=== PATIENT | female | born 1995 ===

== ENCOUNTER 2016-09-17 11:10 | Day surgery (SDC) | payer BC ==
--- NOTE | 2016-09-17 00:41 | HP ---
HISTORY AND PHYSICAL: DATE OF ADMISSION: 09/17/16 HISTORY OF PRESENT ILLNESS: Kaleigh is a 21-year-old right-hand dominant female who went on a hike on 09/14/16 at the [facility], when she slipped on a rock and landed on her elbow. She initially thought she had just sprained it or bruised it and she noticed overnight it was bothering her significantly. The pain is 8/10, she went to Urgent Care on September 15 and had x-rays that demonstrated an olecranon fracture with intraarticular involvement. She was placed in a well-padded splint and then brought to my clinic. She denies any numbness or tingling. She has a fair amount of pain, although she is comfortable in the splint. PAST MEDICAL HISTORY: Negative. PAST SURGICAL HISTORY: Significant for adenoid removed, PE tubes, tonsils removed, pinning of the right finger in 2011, right knee irrigation and debridement of her bursa, removed in September 2014. MEDICATIONS: Include, 1. control pills. 2. She was prescribed hydrocodone. ALLERGIES: CLINDAMYCIN. FAMILY HISTORY: Significant for diabetes in her paternal grandmother and heart disease in her paternal and maternal grandparents. High blood pressure in both sets of grandparents. SOCIAL HISTORY: She lives in a dorm. 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 She denies tobacco, denies alcohol. She exercises regularly doing aerobic exercise. She is right-hand dominant. REVIEW OF SYSTEMS: A 14-point review of systems reviewed with the patient is significant for previous fracture of her finger and the above complaint. Otherwise, remainder of systems is negative. PHYSICAL EXAMINATION GENERAL: She is in no acute distress. She is well developed, well nourished. She is alert and oriented x3. She has pleasant mood, normal affect. HEENT: EOMI. LUNGS: Chest is clear to auscultation. HEART: Regular rate and rhythm. ABDOMEN: Soft and nontender. EXTREMITIES: Examination of the right arm demonstrates she is nontender about the shoulder or the fingers. She has a well-padded splint on, which was not removed. She is able to flex and extend her thumb and other digits. She has sensate to light touch about the first dorsal webspace, index, long finger, ulnar versus small finger. She has brisk cap refill. DIAGNOSTIC STUDIES/LAB DATA: X-rays obtained at [facility] demonstrate a simple intraarticular mildly oblique fracture involving intraarticular joint space of the olecranon. No other fractures were noted. ASSESSMENT AND PLAN: She has an olecranon fracture, this needs to be fixed. We will plan for open reduction internal fixation tomorrow, 09/17/16. We discussed the risks and benefits of the surgery versus nonoperative treatment. Risks include bleed, infection, damage to nerves, vessels, surrounding structures, symptomatic hardware, stiffness, persistent pain, need for further surgery, risks of anesthesia, risk of DVT, scarring, risk of arthritis. She has elected to proceed. We will add her on to the schedule tomorrow. I will see her back in the office in approximately 10 days. At that point, we will start working on range of motion. [id number]/[facility] #: [id number] CYRIL
[~2016-09-17 11:10] MED LIST: Buffered Lidocaine 0.9% SYRIN* 5 ML/SYR SYRINGE INTRADERM ONE; Buffered Lidocaine 0.9% SYRIN* 5 ML/SYR SYRINGE ONE; Famotidine IV* 10 MG/ML 2 ML (20 mg) IV ONE; Famotidine IV* 10 MG/ML 2 ML (20 mg) ONE; Morphine INJ* 2 MG/ML 1 ML SYRINGE IV PRN; PROCHLORPERAZINE INJ 5 MG/ML 2 ML VIAL IV PRN; ceFAZolin 2 GM PREMIX(*) 2 GM/50 ML BAG IVPB ONE; fentaNYL* 50 MCG/ML 2 ML VIAL (100 MCG VIAL) IV PRN; oxyCODONE/Acetamin 5/325 MG* TAB PO PRN
[2016-09-17 11:25] LABS: UR Preg Internal Control QC Line Present
[2016-09-17] MEDS ORDERED: fentaNYL* 50 MCG/ML 2 ML VIAL (100 MCG VIAL) ONE (12:30)
[2016-09-17] MEDS ORDERED: KETAMINE HCL* 50 MG/ML 10 ML VIAL ONE (12:30)
[2016-09-17] MEDS ORDERED: Midazolam* 1 MG/ML 5 ML VIAL (5 MG) ONE (12:30)
[2016-09-17] MEDS ORDERED: Propofol* 10 MG/ML 20 ML BTL IV PUSH ONE (14:35)
[2016-09-17] MEDS ORDERED: EPHEDrine (Pressors)* 50 MG/ML VIAL ONE (14:35)
[2016-09-17] MEDS ORDERED: Dexamethasone IV* 4 MG/ML 1 ML (4 MG) ONE (14:35)
[2016-09-17] MEDS ORDERED: Lidocaine 2% PF * 5 ML VIAL ONE (14:35)
[2016-09-17] MEDS ORDERED: PROCHLORPERAZINE INJ 5 MG/ML 2 ML VIAL ONE (14:35)
[2016-09-17] MEDS ORDERED: Ondansetron INJ* 2 MG/ML VIAL ONE (14:35)
[2016-09-17] MEDS ORDERED: Ketorolac INJ* 30 MG/ML 1 ML VIAL ONE (17:09)
[2016-09-17 18:05] VITALS: BP 107/74
--- NOTE | 2016-09-17 20:45 | RAD ---
INDICATION: Right elbow ORIF COMPARISON: None FINDINGS: 2 minutes and 11 seconds of fluoroscopy were provided for the orthopedics department. Fluoroscopic spot imaging of the right elbow were obtained for operative control. CPT II Codes: 6045F (fluoro time doc)
--- NOTE | 2016-09-19 10:38 | OP ---
OPERATIVE REPORT: DATE OF OPERATION: 09/17/16 DATE OF : 89 SURGEON: Prabhu Georges MD TENDERIZER TENDER: CLAUDIA Coker An social research assistant was needed for the entirety of the case to help with positioning, retraction, and utilized throughout all portions of this case. ANESTHESIOLOGIST: Dr. Dewey. ANESTHESIA: General, interscalene block. PRE-OP DIAGNOSIS: Right displaced olecranon fracture. POST-OP DIAGNOSIS: Right displaced olecranon fracture. OPERATIVE PROCEDURE: Open reduction internal fixation of right olecranon. COMPLICATIONS: None. ESTIMATED BLOOD LOSS: Minimal. TOURNIQUET TIME: 90 min at 250 mmHg. IMPLANTS: Two 2.0 K wires and 18-gauge tension band wire construct. DISPOSITION: Stable. INDICATIONS: Kaleigh Raymond is a 21-ear-old right hand dominant female who was hiking 3 days prior in [place], when she slipped on a wet stone and landed hard on her right elbow. She initially thought she sprained. She went to urgent care the next day when she was having more pain and could not extend the arm and was diagnosed with simple slightly oblique olecranon fracture with intra- articular involvement. Risks and benefits of surgical versus nonoperative treatment were discussed at length and included, but are not limited to bleeding, infection, damage to nerves, vessels, surrounding structures, wound nonhealing, persistent pain, symptomatic hardware, need for further surgery, stiffness, arthritis, risk of anesthesia, risk of damage to nerves, vessels and surrounding structures including the AIN, TIN, and ulnar nerve, risks of DVT. She has elected to proceed. DESCRIPTION OF PROCEDURE: The patient was greeted in the preoperative area by the attending surgeon. Correct extremity was marked and consent was confirmed. She underwent interscalene nerve block by the anesthesiologist, after which she was brought back to the operating suite and placed in the lateral position and secured with vidal bag. The patient then underwent general anesthesia with LMA intubation after which an unsterile tourniquet was placed high on the right arm. The splint was removed. The skin was intact. There was mild amount of bruising, but there is no open wounds. The right arm was then prepped and draped in the usual sterile fashion beginning with chlorhexidine soap, scrub, and alcohol wipe and a final prep with ChloraPrep. After appropriate surgical pause, indicating side, site, procedure, administration of antibiotics, Esmarch was used to exsanguinate the limb and the tourniquet inflated to 250 mmHg. The midline incision was done over the ulna with care to try to sweep ulnarly to avoid the tip of the olecranon and then proximally to the triceps was then made sharply using a 15 blade. The soft tissues were carefully dissected. The bone was readily available. There was fascia that was still covering the fracture. This was then released for later closure. Using 15 blade, the fracture was readily evident. The wooden- handle elevator was used to release the fascia off the bone distally to about 4 cm distal to the fracture and then proximally to expose the triceps insertion and the projected pin placement. Once this was done, the fracture part was booked opened and then curetted using small curette and the hematoma was removed. Reduction was then done using reduction clamp. At this point, a 2.0 K -wire was then placed in the center of the ulna to try to mimic the supposed trajectory for the 2 pins. This was found to be appropriately placed. Then the parallel guide was used to place the medial and lateral pins to that. This was also checked under fluoroscopic examination. Once these were placed with good reduction, the attempt was for the tension band construct. The 18-gauge looped wire was then brought to the field. A 2.0 drill bit was used drill bicortically into the distal ulnar shaft 4 cm distal and about 5 mm from the edge of the bone. This was drilled bicortically and the wire was passed through there and then passed in a [id number] fashion around and both edges were then tightened down for tension band construct. Once this was complete, the sharp edges were buried under the fascia in towards the bone. The elbow was taken through range of motion. Provisional images were obtained. At this point, both medial and lateral K wires were then bent and cut sharply and impacted back into the bone. Images were obtained to make sure that the pins did not penetrate too far through the anterior cortex. Final images were obtained. The wounds were copiously irrigated. The fascia was closed with 2-0 Vicryl, the subcutaneous tissues with 2-0 Vicryl, and the skin with 3-0 nylon. A well-padded posterior splint was then placed with a side strut. The tourniquet was deflated for a total time of 90 minutes. She is awoken from anesthesia and transferred to the PACU in stable condition. POSTOPERATIVE PLAN: She will be nonweightbearing. She will be in the splint for approximately 2 weeks, at which point, she will come out and she allowed to work on digital range of motion. She will be not allowed to lift or push or pull until around 6 weeks postoperatively and will be nonweightbearing until 6 weeks. She will be discharged on pain medication, antibiotic. DVT prophylaxis was considered, but deferred due to no previous personal or family history. I will see the patient back in 10 to 14 days. [id number]/[facility] #: [id number] MTDD
== END 2016-09-17 17:30 | disposition home or self-care (01) ==
LOC: OR 11:10
PROVIDERS: ATTEND Orthopaedic Surgery
DX: S52.031A Displaced fracture of olecranon process with intraarticular extension of right ulna, initial encounter for closed fracture (principal); W01.198A Fall on same level from slipping, tripping and stumbling with subsequent striking against other object, initial encounter; Z88.1 Allergy status to other antibiotic agents
CPT/HCPCS: 76000; 81025; C1713; C1776; J0690; J0780; J1100; J1885; J2250; J2405; J2704; J3010